=== PATIENT | female | born 1995 | race Caucasian/White ===

== ENCOUNTER 2017-10-22 00:51 | Emergency (ER) | payer OTHER ==
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
[2017-10-22] MEDS ORDERED: NS(*) 0.9% 1000 ML BAG 1,000 ML IV ONE (01:15)
[2017-10-22] MEDS ORDERED: fentaNYL CITR 100 MCG/2 ML AMP IVP ONE (01:15)
[2017-10-22 01:28] LABS: INR 1.06; PLATELET COUNT, AUTOMATED 328 K/uL (150-450)
[2017-10-22] MEDS ORDERED: IOPAMIDOL 76% 75 ML INFUS BTL 75 ML ONE (01:32)
[2017-10-22] MEDS ORDERED: HYDROmorphone* 1 MG/ML 1 MG/ML ML IVP ONE (01:40)
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
[2017-10-22] MEDS ORDERED: ONDANSETRON 4 MG/2 ML VIAL IVP ONE (02:20)
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
--- NOTE | 2017-10-22 03:21 | RADIOLOGY IMAGING REPORT ---
[place] [facility] [place] Zara Claire : 1995 MR: [id number] V: [id number] EXAM DATE: ORDERING PHYSICIAN: NAYAN MARCOS TECHNOLOGIST: Location: [facility] [place] Patient: Zara Claire : 1995 Visit/Account:[id number] Date of Sevice: 10/22/2017 EXAMINATION: CT Head without intravenous contrast CT Cervical spine without intravenous contrast HISTORY: Trauma. TECHNIQUE: Head: Axial images were obtained from the skull base to the vertex without intravenous contrast. Sa gittal and coronal reformatted images are also submitted. Cervical spine: Axial images were obtained from the skull base through the upper thoracic spine with out IV contrast administration. Coronal and sagittal reformatted images were obtained from the axial source data. One of the following dose optimization techniques was utilized in the performance of this exam: Autom ated exposure control; adjustment of the mA and/or kV according to the patient's size; or use of an i terative reconstruction technique. Specific details can be referenced in the facility's radiology C T exam operational policy. COMPARISON: None. FINDINGS: HEAD: Brain volume: Normal. Ventricles: Negative. Acute ischemic changes: None. Hemorrhage: None. Masses / edema: None. Patel-white: Negative. White matter: Negative. Vessels: Negative. Extra-axial: Negative. Calvarium / skull base: Negative. Visualized sinuses / orbits: Rightward nasal septal deviation. CERVICAL SPINE: Alignment: Straightening of the normal lordosis. Cranio-cervical junction: Negative. Vertebral bodies: Negative. Posterior elements: Negative. Hardware: None. Disc Spaces: Negative. Soft tissues: Negative. Visualized upper chest: Negative. IMPRESSION: 1. No acute intracranial abnormality. 2. No acute cervical spine fracture. 3. Straightening of the normal cervical lordosis may be positional or secondary to muscle spasm. 4. Rightward nasal septal deviation. Report Dictated By: Wyatt Dove MD at 10/22/2017 2:40 AM Report E-Signed By: Wyatt Dove MD at 10/22/2017 2:54 AM WSN:[id number]
--- NOTE | 2017-10-22 03:21 | RADIOLOGY IMAGING REPORT ---
FACILITY: [facility] PATIENT NAME: Zara Claire : 1995 MR: [id number] V: [id number] EXAM DATE: ORDERING PHYSICIAN: NAYAN MARCOS TECHNOLOGIST: Location: [facility] Patient: Zara Claire : 1995 Visit/Account:[id number] Date of Sevice: 10/22/2017 EXAMINATION: CT chest with IV contrast CT abdomen with IV contrast CT pelvis with IV contrast HISTORY: Trauma. TECHNIQUE: Spiral scan was obtained through the chest, abdomen and pelvis during injection of nonio pastora iodinated intravenous contrast. Sagittal and coronal reformatted images are also submitted. One of the following dose optimization techniques was utilized in the performance of this exam: Autom ated exposure control; adjustment of the mA and/or kV according to the patient's size; or use of an i terative reconstruction technique. Specific details can be referenced in the facility's radiology C T exam operational policy. CONTRAST: 75 mL of IV Isovue-370 COMPARISON: None available. FINDINGS: CT THORAX: Lungs / pleura: Negative. Mediastinum / yovani: Negative. Heart / pericardium: Negative. Vessels: Negative. Musculoskeletal / Body wall: Negative. Lymph node assessment: Negative. Lower neck: Negative. CT ABDOMEN AND PELVIS: Liver / biliary: Negative. Pancreas: Negative. Spleen: Negative. Adrenal glands: Negative. Kidneys: Negative. Pelvic structures: Negative. Bowel: Negative. Peritoneum / retroperitoneum / mesenteries: Negative. Vessels: Negative. Musculoskeletal / Body wall: Negative. Lymph node assessment: Negative. IMPRESSION: Normal contrast-enhanced CT of the chest, abdomen, and pelvis. Report Dictated By: Wyatt Dove MD at 10/22/2017 2:54 AM Report E-Signed By: Wyatt Dove MD at 10/22/2017 3:05 AM WSN:[id number]
--- NOTE | 2017-10-22 03:21 | RADIOLOGY IMAGING REPORT ---
FACILITY: [facility] PATIENT NAME: Zara Claire : 1995 MR: [id number] V: [id number] EXAM DATE: ORDERING PHYSICIAN: NAYAN MARCOS TECHNOLOGIST: Location: [facility] - [place], [place] Patient: Zara Claire : 1995 Visit/Account:[id number] Date of Sevice: 10/22/2017 EXAMINATION: CT Thoracic spine with intravenous contrast (reformatted from the chest CT) HISTORY: Back pain. Trauma. COMPARISON: None available. TECHNIQUE: Axial, sagittal, and coronal bone reformats of the thoracic spine. Axial and sagittal soft tissue reformats of the thoracic spine. One of the following dose optimization techniques was utilized in the performance of this exam: Autom ated exposure control; adjustment of the mA and/or kV according to the patient's size; or use of an i terative reconstruction technique. Specific details can be referenced in the facility's radiology C T exam operational policy. CONTRAST: 75 mL of IV Isovue-370. A single dose was given for the chest, abdomen, and pelvis CT and thoracic spine reformats were created from that data. FINDINGS: Alignment: Mild convex rightward curvature. Vertebral bodies: Negative. Posterior elements: Negative. Hardware: None. Disc Spaces: Negative. Soft tissues: Negative. Visualized lungs / abdomen: Negative. Enhancement: Negative. IMPRESSION: No acute thoracic spine fracture. Report Dictated By: Wyatt Dove MD at 10/22/2017 3:06 AM Report E-Signed By: Wyatt Dove MD at 10/22/2017 3:11 AM WSN:[id number]
--- NOTE | 2017-10-22 03:28 | RADIOLOGY IMAGING REPORT ---
FACILITY: [facility] PATIENT NAME: Zara Claire : 1995 MR: [id number] V: [id number] EXAM DATE: ORDERING PHYSICIAN: NAYAN MARCOS TECHNOLOGIST: Location: [facility] Patient: Zara Claire : 1995 Visit/Account:[id number] Date of Sevice: 10/22/2017 EXAMINATION: CT Lumbar spine with intravenous contrast (reformatted from the chest, abdomen, and pelvis CT) HISTORY: Back pain. Trauma. COMPARISON: None. TECHNIQUE: Axial, sagittal, and coronal reformats of the lumbar spine were created from the chest, ab domen, and pelvis CT. One of the following dose optimization techniques was utilized in the performance of this exam: Autom ated exposure control; adjustment of the mA and/or kV according to the patient's size; or use of an i terative reconstruction technique. Specific details can be referenced in the facility's radiology C T exam operational policy. CONTRAST: 75 mL of IV Isovue-370 was given for the chest, abdomen, and pelvis CT. FINDINGS: Alignment: Normal. Vertebral bodies: Negative. Posterior elements: Negative. Hardware: None. Disc Spaces: Negative. Soft tissues: Negative. Visualized retroperitoneal / abdominal structures: Negative. Enhancement: Negative. IMPRESSION: No acute lumbar spine fracture. Report Dictated By: Wyatt Dove MD at 10/22/2017 3:19 AM Report E-Signed By: Wyatt Dove MD at 10/22/2017 3:23 AM WSN:[id number]
[2017-10-22] MEDS ORDERED: KETOROLAC 30 MG/ML VIAL IVP ONE (04:00)
[2017-10-22] MEDS ORDERED: PROMETHAZINE 25 MG/ML 1 ML AMP IVP ONE (04:30)
--- NOTE | 2017-10-22 04:38 | RADIOLOGY IMAGING REPORT ---
FACILITY: [facility] PATIENT NAME: Zara Claire : 1995 MR: [id number] V: [id number] EXAM DATE: ORDERING PHYSICIAN: NAYAN MARCOS TECHNOLOGIST: Location: [facility] [place] Patient: Zara Claire : 1995 Visit/Account:[id number] Date of Sevice: 10/22/2017 SHOULDER MIN 2 VIEWS LEFT SHOULDER MIN 2 VIEWS RIGHT ELBOW 3 VIEWS RIGHT Indication: Bilateral shoulder pain. Right elbow pain. Trauma. Comparison: None Available Findings: Left shoulder: 2 views. No evidence of acute fracture, dislocation, or radiopaque foreign body. Yesica l mineralization, joint spaces, and alignment. Right shoulder: 2 views. No evidence of acute fracture, dislocation, or radiopaque foreign body. Norm al mineralization, joint spaces, and alignment. Right elbow: 3 views. No evidence of acute fracture, dislocation, or radiopaque foreign body. Normal mineralization, joint spaces, and alignment. IMPRESSION: Negative bilateral shoulder and right elbow radiographs. Report Dictated By: Wyatt Dove MD at 10/22/2017 4:30 AM Report E-Signed By: Wyatt Dove MD at 10/22/2017 4:34 AM WSN:[id number]
--- NOTE | 2017-10-22 04:38 | RADIOLOGY IMAGING REPORT ---
FACILITY: [facility] - [place] PATIENT NAME: Zara Claire : 1995 MR: [id number] V: [id number] EXAM DATE: ORDERING PHYSICIAN: NAYAN MARCOS TECHNOLOGIST: Location: [facility] Patient: Zara Claire : 1995 Visit/Account:[id number] Date of Sevice: 10/22/2017 SHOULDER MIN 2 VIEWS LEFT SHOULDER MIN 2 VIEWS RIGHT ELBOW 3 VIEWS RIGHT Indication: Bilateral shoulder pain. Right elbow pain. Trauma. Comparison: None Available Findings: Left shoulder: 2 views. No evidence of acute fracture, dislocation, or radiopaque foreign body. Yesica l mineralization, joint spaces, and alignment. Right shoulder: 2 views. No evidence of acute fracture, dislocation, or radiopaque foreign body. Norm al mineralization, joint spaces, and alignment. Right elbow: 3 views. No evidence of acute fracture, dislocation, or radiopaque foreign body. Normal mineralization, joint spaces, and alignment. IMPRESSION: Negative bilateral shoulder and right elbow radiographs. Report Dictated By: Wyatt Dove MD at 10/22/2017 4:30 AM Report E-Signed By: Wyatt Dove MD at 10/22/2017 4:34 AM WSN:[id number]
--- NOTE | 2017-10-22 04:39 | RADIOLOGY IMAGING REPORT ---
[place] [facility] [place]: Zara Claire : 1995 MR: [id number] V: [id number] EXAM DATE: ORDERING PHYSICIAN: NAYAN MARCOS TECHNOLOGIST: [place] [facility] [place]: Zara Claire : 1995 Visit/Account:[id number] Date of Sevice: 10/22/2017 SHOULDER MIN 2 VIEWS LEFT SHOULDER MIN 2 VIEWS RIGHT ELBOW 3 VIEWS RIGHT Indication: Bilateral shoulder pain. Right elbow pain. Trauma. Comparison: None Available Findings: Left shoulder: 2 views. No evidence of acute fracture, dislocation, or radiopaque foreign body. Yesica l mineralization, joint spaces, and alignment. Right shoulder: 2 views. No evidence of acute fracture, dislocation, or radiopaque foreign body. Norm al mineralization, joint spaces, and alignment. Right elbow: 3 views. No evidence of acute fracture, dislocation, or radiopaque foreign body. Normal mineralization, joint spaces, and alignment. IMPRESSION: Negative bilateral shoulder and right elbow radiographs. Report Dictated By: Wyatt Dove MD at 10/22/2017 4:30 AM Report E-Signed By: Wyatt Dove MD at 10/22/2017 4:34 AM WSN:[id number]
[2017-10-22] MEDS ORDERED: ONDANSETRON 4 MG ODT TH SL ONE (04:50)
[2017-10-22] MEDS ORDERED: KETOROLAC TROM 10 MG TAB TH PO ONE (04:50)
[2017-10-22] MEDS ORDERED: ACET/HYDROC 5/325MG TH ER ONLY 2 TAB/BOTTLE PO ONE (04:50)
[2017-10-22] MEDS ORDERED: PROMETHAZINE HCL 25 MG TAB TH 2 TAB/BOTTLE PO ONE (04:50)
[2017-10-22] MEDS ORDERED: LOR5/325 PO (04:53)
[2017-10-22] MEDS ORDERED: KET10 PO (04:53)
[2017-10-22] MEDS ORDERED: PROM-110 PO (04:53)
[2017-10-22] MEDS ORDERED: ONDA4TAB PO (04:53)
[2017-10-22 05:00] VITALS: BP 101/60
== END 2017-10-22 05:10 | disposition home or self-care (01) ==
LOC: ER 01:05
DX: S06.0X1A Concussion with loss of consciousness of 30 minutes or less, initial encounter (principal); S16.1XXA Strain of muscle, fascia and tendon at neck level, initial encounter; M25.512 Pain in left shoulder; M25.511 Pain in right shoulder; R11.0 Nausea; V86.99XA Unspecified occupant of other special all-terrain or other off-road motor vehicle injured in nontraffic accident, initial encounter
CPT/HCPCS: 70450; 71045; 71260; 72125; 72129; 72132; 72170; 73030; 73080; 74177; 81001; 83605; 85025; 85610; 85730; 96361; 96374; 96375; 99284; J1170; J1885; J2405; J2550; J3010; J7030; L0172; Q9967; S0119; 82040; 82247; 82310; 82374; 82435; 82565; 82947; 84075; 84132; 84155; 84295; 84450; 84460; 84520